=== PATIENT | male | born 2000 ===

== ENCOUNTER 2023-01-21 17:16 | Outpatient (CLI) | payer OTHER ==
--- NOTE | 2023-01-22 12:30 | MRI Report ---
PROCEDURE: SHOULDER WO - LT INDICATIONS: SHOULDER INSTABILITY, LEFT SHOULDER SPRAIN TECHNIQUE: Noncontrast oblique coronal T2 fast spin echo with fat saturation, oblique sagittal T1 spin echo and T2 fast spin echo with fat saturation, axial T1 spin echo and T2 fast spin echo with fat saturation t hrough the shoulder. COMPARISON: None. FINDINGS: Image quality: Excellent. Rotator cuff: Low-grade articular surface partial-thickness tear involving distal supraspinatus at it s insertion on humeral head is seen extending to musculotendinous junction. Distal infraspinatus tend inosis is seen. Distal subscapularis tendon is intact. No full-thickness rotator cuff tendon rupture. No significant rotator cuff muscle atrophy on sagittal images. Bones and bursae: No bone marrow contusions or fractures. No acromioclavicular joint degeneration. The acromion demonstrates conventional anatomy, without an os acromiale. No pathologic subacromial/ subdeltoid bursal fluid is present. Capsule and soft tissues: There is focal signal abnormality involving superior anterior labrum at 2 t o 3:00 position suggestive of subtle superior anterior labral tear. Contour irregularity and fraying of anterior inferior labrum at 5 to 6:00 position is also seen. The long head of the biceps tendon de monstrates normal location and morphology. The rotator interval appears normal, without fibrosis. T he coracohumeral ligament is normal in thickness. IMPRESSION: 1. Low-grade articular surface partial-thickness tear involving distal supraspinatus extending to mus culotendinous junction. Distal infraspinatus tendinosis. No full-thickness rotator cuff tendon ruptur e. 2. No marrow edema. No fracture or dislocation. No suspicious bony lesions. 3. Suggestion of anterior inferior labral tear at 5 to 6:00 position and possible subtle superior ant erior labral tear at 2 to 3:00 position. Reviewed by: Niall Pierre MD on 01/22/2023 12:29 PM PDT Approved by: Niall Pierre MD on 01/22/2023 12:29 PM PDT Station ID: [id number]
== END 2023-01-21 17:17 | disposition home or self-care (01) ==
LOC: DI 17:16
PROVIDERS: ATTEND Registered Nurse
DX: M75.112 Incomplete rotator cuff tear or rupture of left shoulder, not specified as traumatic (principal)

== ENCOUNTER 2023-02-23 08:00 | Outpatient (CLI) | payer OTHER ==
--- NOTE | 2023-02-23 13:10 | XRAY Report ---
PROCEDURE: Shoulder 3 View LT INDICATIONS: LEFT SHOULDER PAIN TECHNIQUE: 4 views of the shoulder were acquired. COMPARISON: None. FINDINGS: Bones: No fractures or dislocations. No suspicious bony lesions. Visualized ribs appear intact. Soft tissues: No suspicious soft tissue calcifications. The visualized lungs are within normal limi ts. IMPRESSION: No acute bony abnormality. Reviewed by: Antoni Ramirez on 02/23/2023 1:09 PM PDT Approved by: Antoni Ramirez on 02/23/2023 1:09 PM PDT Station ID: [id number]
== END 2023-02-23 23:59 | disposition home or self-care (01) ==
LOC: DI.WOS 08:00
PROVIDERS: ATTEND Orthopaedic Surgery
DX: S43.492A Other sprain of left shoulder joint, initial encounter (principal)